=== PATIENT | female | born 1985 | race African-American/Black ===

== ENCOUNTER → 2016-12-16 08:14 | Outpatient (CLI) | payer MEDICAID ==
[2015-02-26 11:10] VITALS: BMI 25.3
[~2016-12-16 08:14] MED LIST: BENADRYL50 MG OR; HYDROCODONE-APA1 TAB PO
--- NOTE | 2016-12-28 08:45 | EMG ---
PATIENT:SHELL SANDOVAL DATE OF SERVICE: 12/16/16 MEDICAL RECORD: [id number] DATE OF : 85 LOCATION: [facility] ADMISSION DATE: REFERRING PHYSICIAN: EDE ANDRADE DO INTERPRETING PHYSICIAN: SERGIO JUDD MD DATE OF SERVICE: 12/16/2016 Referred as an outpatient by Dr. Andrade. DATE OF EXAMINATION: 12/16/2016 ELECTROMYOGRAPHIC DATA: Electromyographic examination is limited to both upper extremities and is limited to the nerve conduction studies only at the request of the referring physician. In the right upper extremity, right median motor stimulation elicits a compound motor action potential with a distal latency of 3.1 milliseconds, peak amplitude of 11 millivolts and calculated conduction velocity of 53 meters per second. Right ulnar motor stimulation elicits a compound motor action potential with a distal latency of 2.9 milliseconds, peak amplitude of 13 millivolts, and calculated conduction velocity of 66 meters per second. Right ulnar motor stimulation across the elbow fails to elicit evidence of conduction block at this level. Antidromic right median sensory stimulation elicits a response with a distal latency of 3.5 milliseconds, amplitude of 25 microvolts and calculated conduction velocity of 56 meters per second. Antidromic right ulnar sensory stimulation elicits a response with a distal latency of 3.5 milliseconds, amplitude of 15 microvolts and calculated conduction velocity of 60 meters per second. The right median F wave has a latency of 26 milliseconds. In the left upper extremity, left median motor stimulation elicits a compound motor action potential with a distal latency of 2.9 milliseconds, peak amplitude of 14 millivolts, and calculated conduction velocity of 57 meters per second. Left ulnar motor stimulation elicits a compound motor action potential with a distal latency of 2.8 milliseconds, peak amplitude of 12 millivolts, and calculated conduction velocity of 64 meters per second. Left ulnar motor stimulation across the elbow fails to elicit evidence of conduction block at this level. Antidromic left median sensory stimulation elicits a response with a distal latency of 3.2 milliseconds, amplitude of 26 microvolts and calculated conduction velocity of 56 meters per second. Antidromic left ulnar sensory stimulation elicits a response with a distal latency of 3.4 milliseconds, amplitude of 15 microvolts and calculated conduction velocity of 63 meters per second. The left median F wave has a latency of 25 milliseconds. Needle electrode examination is not performed at this time. INTERPRETATION: Electromyographic examination of both upper extremities, limited to the nerve conduction studies only at the request of the referring physician is normal. All values fall within normal limits. TRANSINT:[id number] Voice Confirmation ID: [id number] DOCUMENT ID: [id number] ELECTROMYGRAM/NERVE CONDUCTION [id number] SHELL SANDOVAL DONALD P MD at 0845 CC: [id number] DICTATION DATE: 12/17/16 0809 CVT TECH: 12/18/16 0046 DEP CLI 12/16/[address] [id number]
== END | disposition home or self-care (01) ==
LOC: D.CN 08-27 08:00
DX: R20.2 Paresthesia of skin (principal)

== ENCOUNTER → 2017-07-12 16:44 | Outpatient (CLI) | payer MEDICAID ==
[2015-02-26 11:10] VITALS: BMI 25.3
== END | disposition home or self-care (01) ==
LOC: D.MAMMO 08:30
DX: N63 Unspecified lump in breast (principal)

== ENCOUNTER 2018-07-10 20:51 | Emergency (ER) | payer MEDICAID ==
[~2018-07-10] VITALS: Ht 162.6 cm; Wt 60.5 kg
[2018-07-10 21:07] VITALS: BP 151/102; Ht 162.6 cm; Wt 60.5 kg
[2018-07-10 22:09] LABS: BASOPHILS 0.2 % (0-2); EOSINOPHILS 1.2 % (0-7); HEMATOCRIT 38.6 % (36.0-48.0); HEMOGLOBIN 13.1 g/dL (12-16); IMMATURE GRANULOCYTES 0.2 % (0-5); LYMPHOCYTES 43.1 % (15-50); MCH 31.1 pg (26.0-34.0); MCHC 33.9 g/dL (31.0-37.0); MCV 91.7 fL (80.0-100.0); MEAN PLATELET VOLUME 9.1 fL (7.4-10.4); MONOCYTES 5.3 % (2-11); PLATELET COUNT 236 10x3/uL (130-400); RBC 4.21 10x6/uL (4.00-5.40); WBC 8.1 10x3/uL (4.8-10.8)
[2018-07-10 22:28] LABS: ALKALINE PHOSPHATASE 46 U/L (46-116); ALT (SGPT) 24 U/L (10-68); BILIRUBIN - TOTAL 0.25 mg/dL (0.2-1.3); CALC OSMOLALITY 276 mosm/kg (275-300); CALCIUM 8.5 mg/dL (8.5-10.1); CARBON DIOXIDE 27.5 mmol/L (21.0-32.0); CHLORIDE - SERUM 105 mmol/L (98-107); CREATININE - SERUM 0.8 mg/dL (0.6-1.3); GLUCOSE 86 mg/dL (74-106); POTASSIUM - SERUM 3.6 mmol/L (3.5-5.1); PROTEIN - SERUM 7.6 g/dL (6.4-8.2); SODIUM 139 mmol/L (136-145); UREA NITROGEN 13 mg/dL (7-18); eGFR NON AFRICAN AMERICAN 88 mL/min (90-120)
[2018-07-10 22:55] LABS: APPEARANCE CLEAR (CLEAR); BILIRUBIN NEGATIVE (NEGATIVE); COLOR YELLOW (YELLOW); EPITHELIAL CELLS 0-5 /hpf (0-5); GLUCOSE NEGATIVE (NEGATIVE); KETONE NEGATIVE (NEGATIVE); MUCUS >1+ /lpf (NONE SEEN); NITRITE NEGATIVE (NEGATIVE); PROTEIN NEGATIVE (NEGATIVE); RED CELLS - URINE 0-5 /hpf (0-5); UROBILINOGEN NORMAL (NORMAL); WHITE CELLS - URINE 0-5 /hpf (0-5)
[2018-07-10 22:56] LABS: BACTERIA MODERATE /hpf (NONE SEEN); HCG URINE NEGATIVE (NEGATIVE)
== END 2018-07-10 22:59 | disposition left against medical advice (07) ==
LOC: D.ER 20:51
PROVIDERS: Family Medicine
DX: R10.9 Unspecified abdominal pain (principal)